=== PATIENT | female | born 1960 | race Caucasian/White ===

== ENCOUNTER 2017-12-13 12:23 | Emergency (ER) | payer MEDICARE, MEDICAID, SELFPAY ==
[2017-12-13 12:34] VITALS: BP 123/80; PULSE 83; RESP 14; TEMP 36.6; O2SAT 100; BMI 26.4
--- NOTE | 2017-12-13 12:49 | DI.RAD.S_ITS ---
PROCEDURE: XR TIBIA FIBULA RT 2V INDICATIONS: pain s/p fall TECHNIQUE: 2 views of the tibia and fibula were acquired. COMPARISON: None. FINDINGS: Bones: No fractures or dislocations. No suspicious bony lesions. Soft tissues: No suspicious soft tissue calcifications or masses. IMPRESSION: Negative for fracture Dictated by: Michael Islas M.D. on 12/13/2017 at 13:10 Approved by: Michael Islas M.D. on 12/13/2017 at 13:11
--- NOTE | 2017-12-13 12:49 | DI.RAD.S_ITS ---
PROCEDURE: XR ANKLE LT MIN 3V INDICATIONS: pain s/p fall TECHNIQUE: 3 views of the ankle were acquired. COMPARISON: None. FINDINGS: Bones: No fractures or dislocations. Ankle mortise is normally aligned. No suspicious bony lesions. Tarsometatarsal fusion with crossed orthopedic screws incidentally noted. Soft tissues: No tibiotalar joint effusion. Achilles tendon appears normal. No soft tissue swelling seen. IMPRESSION: No acute bony or soft tissue abnormality. Dictated by: Michael Islas M.D. on 12/13/2017 at 13:08 Approved by: Micahel Islas M.D. on 12/13/2017 at 13:10
--- NOTE | 2017-12-13 12:51 | ED.LOWEXIN ---
HPI - Extremity Injury (Lower) <Chelsie Baron, HE[employer]-BC - Last Filed: 12/13/17 14:38> General Chief Complaint: Extremity Injury, Lower Stated Complaint: legs went out and fell,left leg hurts Time Seen by Provider: 12/13/17 12:36 Source: patient Mode of arrival: wheelchair Limitations: no limitations History of Present Illness HPI Narrative: Patient presents 2 days after a ground level fall where her ?left leg gave out.? She complains of persistent left lower leg pain mostly in her lateral saldivar that radiates down was some numbness in her tingling in her toes. She denies hitting her head loss of consciousness nausea vomiting neck pain back pain or headache. She reports that she had a bump surrounded by erythema and blue that occurred immediately after the incident. She states that went away yesterday. She has had left ankle surgery in the past, but is not sure exactly what was completed. Chart review illustrate that she was seen at the walk-in clinic earlier today, but declined to have x-rays done and declined offer a duplex to check for DVT. Patient has allergies to many pain medications. Related Data Home Medications Medication Instructions Recorded Confirmed bupropion HCl 1 tab PO DAILY 12/13/17 12/13/17 diazepam 10 mg PO TID 12/13/17 12/13/17 doxepin 100 mg PO QPM 12/13/17 12/13/17 ibuprofen 1 tab PO TID 12/13/17 12/13/17 levothyroxine 1 tab PO DAILY 12/13/17 12/13/17 prazosin 1 cap PO BEDTIME 12/13/17 12/13/17 prazosin 2 cap PO DAILY 12/13/17 12/13/17 venlafaxine 2 cap PO QPM 12/13/17 12/13/17 Allergies Allergy/AdvReac Type Severity Reaction Status Date / Time aspirin Allergy Unknown Unverified 08/17/17 12:33 cimetidine Allergy Unknown Unverified 08/17/17 12:33 gabapentin Allergy Unknown Unverified 08/17/17 12:33 ketorolac Allergy Unknown Unverified 08/17/17 12:33 naproxen Allergy Unknown Unverified 08/17/17 12:33 pregabalin Allergy Unknown Unverified 08/17/17 12:33 Sulfa (Sulfonamide Allergy Unknown Unverified 08/17/17 12:33 Antibiotics) tolmetin Allergy Unknown Unverified 08/17/17 12:33 Review of Systems <Chelsie USMAN Baron- - Last Filed: 12/13/17 14:38> Review of Systems GENERAL: Denies chills, fatigue, malaise, fever, sweats. HEENT: Denies sinus pain, ear pain, sore throat, difficulty swallowing, dizziness. RESPIRATORY: Denies dyspnea, cough, wheezing, hemoptysis, sputum. CARDIOVASCULAR: Denies chest pain, palpitations, orthopnea, edema, GASTROINTESTINAL: Denies nausea, vomiting, abdominal pain, diarrhea, constipation, melena. : Denies dysuria, frequency, incontinence, hematuria, urinary retention. MUSCULOSKELETAL: See HPI SKIN: See HPI NEUROLOGIC: Denies weakness, headache, numbness, change in speech, confusion, seizures, incoordination. PSYCHIATRIC: No concerning psychosocial issues. 12 point review of systems is negative except for those stated above Exam <USMAN Bang- - Last Filed: 12/13/17 14:38> Narrative Exam Narrative: GENERAL: This is a well-nourished, well-developed patient, in mild distress. HEAD: Atraumatic. Normocephalic. No temporal or scalp tenderness. EYES: Pupils equal round and reactive. Extraocular motions intact. No scleral icterus. No injection or drainage. ENT: Nose without bleeding, purulent drainage or septal hematoma. Throat without erythema, tonsillar hypertrophy or exudate. Uvula midline. Airway patent. NECK: Trachea midline. No JVD or lymphadenopathy. Supple, nontender, no meningeal signs. CARDIOVASCULAR: Regular rate and rhythm without murmurs, gallops, or rubs. RESPIRATORY: Clear to auscultation. Breath sounds equal bilaterally. No wheezes, rales, or rhonchi. GASTROINTESTINAL: Abdomen soft, non-tender, nondistended. No hepato-splenomegaly, or palpable masses. No guarding. EXTREMITIES: Generalized pain to palpation mid shaft left tib-fib area. No pain to palpation left knee. No pain to palpation of tibial plateau. Pain to palpation left lateral malleolus. Patient appears to have full range of motion for left ankle and toes. No pain to palpation left foot. Pedal pulses intact bilaterally. Temperature of feet feel symmetrical. At times patient states she ?is not sure? if her at mid shaft tib-fib area hurts or not. Pain to palpation left gastroc. BACK: Nontender without deformity or crepitance. No flank tenderness. NEURO: AOx3. SKIN: Small abrasions noted on left knee with no erythema or drainage noted. No rashes no erythema no petechiae no ecchymosis noted left lower leg. No rashes no petechiae no ecchymosis no erythema noted left ankle. Initial Vital Signs Initial Vital Signs: Vital Signs Temperature 97.8 F 12/13/17 12:34 Pulse Rate 83 12/13/17 12:34 Respiratory Rate 14 12/13/17 12:34 Blood Pressure 123/80 H 12/13/17 12:34 Pulse Oximetry 100 12/13/17 12:34 <Alyse Beasley DO - Last Filed: 12/17/17 00:38> Initial Vital Signs Initial Vital Signs: Vital Signs Temperature 97.8 F 12/13/17 12:34 Pulse Rate 83 12/13/17 12:34 Respiratory Rate 14 12/13/17 12:34 Blood Pressure 123/80 H 12/13/17 12:34 Pulse Oximetry 100 12/13/17 12:34 Course <NA Bang - Last Filed: 12/13/17 14:38> Orders Ordered: ED Orders 12/13/17 12:49 XR ankle LT min 3V Stat XR tibia fibula LT 2V Stat 12/13/17 13:18 US periph venous low extrem lt Stat Reevaluation(s) Reevaluation #1: Given warm blankets. Discussed waiting for x-ray results. Patient denies these at this time. Time: 13:05 Reevaluation #2: Discussed negative x-ray findings. We will order duplex given swelling, reported redness and risk factor of smoking. Patient denies needs at this time. Is sitting on her bed watching videos on her cell phone. Time: 13:25 Reevaluation #3: Discussed negative duplex for DVT. Patient remains on stretcher watching TV on phone. Time: 15:10 Vital Signs - 8 hr 12/13/17 12:34 12/13/17 13:02 12/13/17 14:20 Temperature 97.8 F Pulse Rate 83 80 Pulse Rate [Bilateral Dorsalis Pedis] 68 Respiratory Rate 14 18 Blood Pressure 123/80 H Blood Pressure [Left Arm] 120/76 Pulse Oximetry 100 100 <Alyse Beasley DO - Last Filed: 12/17/17 00:38> Orders Ordered: ED Orders 12/13/17 12:49 XR ankle LT min 3V Stat XR tibia fibula LT 2V Stat 12/13/17 13:18 US periph venous low extrem lt Stat Vital Signs - 8 hr 12/13/17 12:34 12/13/17 13:02 12/13/17 14:20 Temperature 97.8 F Pulse Rate 83 80 Pulse Rate [Bilateral Dorsalis Pedis] 68 Respiratory Rate 14 18 Blood Pressure 123/80 H Blood Pressure [Left Arm] 120/76 Pulse Oximetry 100 100 MDM - Extremity Injury (Lower) <NA Bang - Last Filed: 12/13/17 14:38> Imaging Data left ankle xray: Radiologist's impression: [address] [address] XRay Report Signed Patient: Jolanta Cantu MR#: [id number] : 1960 Acct:[id number] Age/Sex: 57 / F Date of Service: 12/13/17 Loc: ED Accession Number: [id number] Procedure: XR ankle LT min 3V Ordering Provider: Chelsie Baron PROCEDURE: XR ANKLE LT MIN 3V INDICATIONS: pain s/p fall TECHNIQUE: 3 views of the ankle were acquired. COMPARISON: None. FINDINGS: Bones: No fractures or dislocations. Ankle mortise is normally aligned. No suspicious bony lesions. Tarsometatarsal fusion with crossed orthopedic screws incidentally noted. Soft tissues: No tibiotalar joint effusion. Achilles tendon appears normal. No soft tissue swelling seen. IMPRESSION: No acute bony or soft tissue abnormality. Dictated by: Michael Islas M.D. on 12/13/2017 at 13:08 Approved by: Michael Islas M.D. on 12/13/2017 at 13:10 left tib/fib xray: Radiologist's impression: [address] [address] XRay Report Signed Patient: Joalnta Cantu MR#: [id number] : 1960 Acct:[id number] Age/Sex: 57 / F Date of Service: 12/13/17 Loc: ED Accession Number: [id number] Procedure: XR tibia fibula LT 2V Ordering Provider: Chelsie Baron-ANTHONY PROCEDURE: XR TIBIA FIBULA RT 2V INDICATIONS: pain s/p fall TECHNIQUE: 2 views of the tibia and fibula were acquired. COMPARISON: None. FINDINGS: Bones: No fractures or dislocations. No suspicious bony lesions. Soft tissues: No suspicious soft tissue calcifications or masses. IMPRESSION: Negative for fracture Dictated by: Michael Isals M.D. on 12/13/2017 at 13:10 Approved by: Michael Islas M.D. on 12/13/2017 at 13:11 Venous US: Radiologist's impression: [place] [address] Ultrasound Report Signed Patient: Jolanta Cantu MR#: [id number] : 1960 Acct:[id number] Age/Sex: 57 / F Date of Service: 12/13/17 Loc: ED Accession Number: [id number] Procedure: US periph venous low extrem lt Ordering Provider: Chelsie Baron-ANTHONY PROCEDURE: US PERIPH VENOUS LOW EXTREM LT INDICATIONS: LEFT LEG PAIN TECHNIQUE: Real-time imaging, as well as color and pulse Doppler interrogation, were performed of the lower extremity deep veins from the inguinal ligament to the popliteal fossa. COMPARISON: None. FINDINGS: The deep veins are normally compressible, and free of intraluminal thrombus. Color and pulse Doppler demonstrate normal phasic intraluminal flow. There is normal augmentation response to distal compression maneuver. IMPRESSION: 1. Negative for DVT Dictated by: Michael Islas M.D. on 12/13/2017 at 13:51 Approved by: Michael Islas M.D. on 12/13/2017 at 13:[address] [facility] Narrative Medical decision making narrative: Patient presents with lower leg pain after a fall 2 days ago. She has no obvious swelling, ecchymosis or erythema on exam. She has good circulation and has a negative x-ray for tib-fib and negative ankle x-rays. Given her persistent lower leg pain, risk factor of smoking, complaint of erythema and swelling, I obtained a duplex for DVT. She had a negative ultrasound for DVT. Her vital signs have been stable in the emergency department. I checked on her several times throughout her stay. Given her level of pain, we gave her crutches. I encouraged her follow up with primary care if worsening or no improvement. She had no questions or concerns upon discharge was reassured by no found fractures or blood clots. Discharge Plan Departure Patient Disposition: Home, Self-Care Clinical Impression: Acute pain of left lower extremity Discharge Date/Time: 12/13/17 14:45 Interventions: ED Discharge Assessment Last Done: 12/13/17 14:45 Instructions: How To Perform RICE (Rest, Ice, Compress, Elevate), DI for Leg Pain Activity Restrictions/Additional Instructions: I suggest [id number] medications for pain. Your x-rays and ultrasound came back negative for any clot or fracture. Follow up with primary care if worsening or no improvement. Continue to use rest ice compression elevation. Prescriptions: No Action doxepin 50 mg capsule 100 mg PO QPM RF: 0 ibuprofen 800 mg tablet 1 tab PO TID RF: 0 prazosin 1 mg capsule 2 cap PO DAILY RF: 0 venlafaxine 150 mg capsule,extended release 24hr 2 cap PO QPM RF: 0 prazosin 5 mg capsule 1 cap PO BEDTIME RF: 0 levothyroxine 88 mcg tablet 1 tab PO DAILY RF: 0 diazepam 10 mg tablet 10 mg PO TID RF: 0 bupropion HCl 300 mg tablet extended release 24 hr 1 tab PO DAILY RF: 0 <Alyse Beasley DO - Last Filed: 12/17/17 00:38> Cosnahid ED Attending Keith Attestation: I was immediately available in the department for consultation. Documentation has been reviewed. I agree with assessment and plan.
--- NOTE | 2017-12-13 12:57 | ED_ITS ---
HPI - Extremity Injury (Lower) <Chelsie Baron, ATTENDANT [employer]-BC - Last Filed: 12/13/17 14:38> General Chief Complaint: Extremity Injury, Lower Stated Complaint: legs went out and fell,left leg hurts Time Seen by Provider: 12/13/17 12:36 Source: patient Mode of arrival: wheelchair Limitations: no limitations History of Present Illness HPI Narrative: Patient presents 2 days after a ground level fall where her ? left leg gave out.? She complains of persistent left lower leg pain mostly in her lateral sal[place]ar that radiates down was some numbness in her tingling in her toes. She denies hitting her head loss of consciousness nausea vomiting neck pain back pain or headache. She reports that she had a bump surrounded by erythema and blue that occurred immediately after the incident. She states that went away yesterday. She has had left ankle surgery in the past, but is not sure exactly what was completed. Chart review illustrate that she was seen at the walk-in clinic earlier today, but declined to have x-rays done and declined offer a duplex to check for DVT. Patient has allergies to many pain medications. Related Data Home Medications Medication Instructions Recorded Confirmed bupropion HCl 1 tab PO DAILY 12/13/17 12/13/17 diazepam 10 mg PO TID 12/13/17 12/13/17 doxepin 100 mg PO QPM 12/13/17 12/13/17 ibuprofen 1 tab PO TID 12/13/17 12/13/17 levothyroxine 1 tab PO DAILY 12/13/17 12/13/17 prazosin 1 cap PO BEDTIME 12/13/17 12/13/17 prazosin 2 cap PO DAILY 12/13/17 12/13/17 venlafaxine 2 cap PO QPM 12/13/17 12/13/17 Allergies Allergy/AdvReac Type Severity Reaction Status Date / Time aspirin Allergy Unknown Unverified 08/17/17 12:33 cimetidine Allergy Unknown Unverified 08/17/17 12:33 gabapentin Allergy Unknown Unverified 08/17/17 12:33 ketorolac Allergy Unknown Unverified 08/17/17 12:33 naproxen Allergy Unknown Unverified 08/17/17 12:33 pregabalin Allergy Unknown Unverified 08/17/17 12:33 Sulfa (Sulfonamide Allergy Unknown Unverified 08/17/17 12:33 Antibiotics) tolmetin Allergy Unknown Unverified 08/17/17 12:33 Review of Systems <Chelsie USMAN Baron- - Last Filed: 12/13/17 14:38> Review of Systems GENERAL: Denies chills, fatigue, malaise, fever, sweats. HEENT: Denies sinus pain, ear pain, sore throat, difficulty swallowing, dizziness. RESPIRATORY: Denies dyspnea, cough, wheezing, hemoptysis, sputum. CARDIOVASCULAR: Denies chest pain, palpitations, orthopnea, edema, GASTROINTESTINAL: Denies nausea, vomiting, abdominal pain, diarrhea, constipation, melena. : Denies dysuria, frequency, incontinence, hematuria, urinary retention. MUSCULOSKELETAL: See HPI SKIN: See HPI NEUROLOGIC: Denies weakness, headache, numbness, change in speech, confusion, seizures, incoordination. PSYCHIATRIC: No concerning psychosocial issues. 12 point review of systems is negative except for those stated above Exam <USMAN Bang- - Last Filed: 12/13/17 14:38> Narrative Exam Narrative: GENERAL: This is a well-nourished, well-developed patient, in mild distress. HEAD: Atraumatic. Normocephalic. No temporal or scalp tenderness. EYES: Pupils equal round and reactive. Extraocular motions intact. No scleral icterus. No injection or drainage. ENT: Nose without bleeding, purulent drainage or septal hematoma. Throat without erythema, tonsillar hypertrophy or exudate. Uvula midline. Airway patent. NECK: Trachea midline. No JVD or lymphadenopathy. Supple, nontender, no meningeal signs. CARDIOVASCULAR: Regular rate and rhythm without murmurs, gallops, or rubs. RESPIRATORY: Clear to auscultation. Breath sounds equal bilaterally. No wheezes , rales, or rhonchi. GASTROINTESTINAL: Abdomen soft, non-tender, nondistended. No hepato-splenomegaly , or palpable masses. No guarding. EXTREMITIES: Generalized pain to palpation mid shaft left tib-fib area. No pain to palpation left knee. No pain to palpation of tibial plateau. Pain to palpation left lateral malleolus. Patient appears to have full range of motion for left ankle and toes. No pain to palpation left foot. Pedal pulses intact bilaterally. Temperature of feet feel symmetrical. At times patient states she ?is not sure? if her at mid shaft tib-fib area hurts or not. Pain to palpation left gastroc. BACK: Nontender without deformity or crepitance. No flank tenderness. NEURO: AOx3. SKIN: Small abrasions noted on left knee with no erythema or drainage noted. No rashes no erythema no petechiae no ecchymosis noted left lower leg. No rashes no petechiae no ecchymosis no erythema noted left ankle. Initial Vital Signs Initial Vital Signs: Vital Signs Temperature 97.8 F 12/13/17 12:34 Pulse Rate 83 12/13/17 12:34 Respiratory Rate 14 12/13/17 12:34 Blood Pressure 123/80 H 12/13/17 12:34 Pulse Oximetry 100 12/13/17 12:34 <Alyse Beasley DO - Last Filed: 12/17/17 00:38> Initial Vital Signs Initial Vital Signs: Vital Signs Temperature 97.8 F 12/13/17 12:34 Pulse Rate 83 12/13/17 12:34 Respiratory Rate 14 12/13/17 12:34 Blood Pressure 123/80 H 12/13/17 12:34 Pulse Oximetry 100 12/13/17 12:34 Course <NA Bang - Last Filed: 12/13/17 14:38> Orders Ordered: ED Orders 12/13/17 12:49 XR ankle LT min 3V Stat XR tibia fibula LT 2V Stat 12/13/17 13:18 US periph venous low extrem lt Stat Reevaluation(s) Reevaluation #1: Given warm blankets. Discussed waiting for x-ray results. Patient denies these at this time. Time: 13:05 Reevaluation #2: Discussed negative x-ray findings. We will order duplex given swelling, reported redness and risk factor of smoking. Patient denies needs at this time. Is sitting on her bed watching videos on her cell phone. Time: 13:25 Reevaluation #3: Discussed negative duplex for DVT. Patient remains on stretcher watching TV on phone. Time: 15:10 Vital Signs - 8 hr 12/13/17 12:34 12/13/17 13:02 12/13/17 14:20 Temperature 97.8 F Pulse Rate 83 80 Pulse Rate [Bilateral Dorsalis Pedis] 68 Respiratory Rate 14 18 Blood Pressure 123/80 H Blood Pressure [Left Arm] 120/76 Pulse Oximetry 100 100 <Alyse Beasley DO - Last Filed: 12/17/17 00:38> Orders Ordered: ED Orders 12/13/17 12:49 XR ankle LT min 3V Stat XR tibia fibula LT 2V Stat 12/13/17 13:18 US periph venous low extrem lt Stat Vital Signs - 8 hr 12/13/17 12:34 12/13/17 13:02 12/13/17 14:20 Temperature 97.8 F Pulse Rate 83 80 Pulse Rate [Bilateral Dorsalis Pedis] 68 Respiratory Rate 14 18 Blood Pressure 123/80 H Blood Pressure [Left Arm] 120/76 Pulse Oximetry 100 100 MDM - Extremity Injury (Lower) <NA Bang - Last Filed: 12/13/17 14:38> Imaging Data left ankle xray: Radiologist's impression: [address] [address] XRay Report Signed Patient: Jolanta Cantu MR#: [id number] : 1960 Acct:[id number] Age/Sex: 57 / F Date of Service: 12/13/17 Loc: ED Accession Number: [id number] Procedure: XR ankle LT min 3V Ordering Provider: Chelsie Baron PROCEDURE: XR ANKLE LT MIN 3V INDICATIONS: pain s/p fall TECHNIQUE: 3 views of the ankle were acquired. COMPARISON: None. FINDINGS: Bones: No fractures or dislocations. Ankle mortise is normally aligned. No suspicious bony lesions. Tarsometatarsal fusion with crossed orthopedic screws incidentally noted. Soft tissues: No tibiotalar joint effusion. Achilles tendon appears normal. No soft tissue swelling seen. IMPRESSION: No acute bony or soft tissue abnormality. Dictated by: Michael Islas M.D. on 12/13/2017 at 13:08 Approved by: Michael Islas M.D. on 12/13/2017 at 13:10 left tib/fib xray: Radiologist's impression: [address] [address] XRay Report Signed Patient: Jolanta Cantu MR#: [id number] : 1960 Acct:[id number] Age/Sex: 57 / F Date of Service: 12/13/17 Loc: ED Accession Number: [id number] Procedure: XR tibia fibula LT 2V Ordering Provider: Chelsie Baron-ANTHONY PROCEDURE: XR TIBIA FIBULA RT 2V INDICATIONS: pain s/p fall TECHNIQUE: 2 views of the tibia and fibula were acquired. COMPARISON: None. FINDINGS: Bones: No fractures or dislocations. No suspicious bony lesions. Soft tissues: No suspicious soft tissue calcifications or masses. IMPRESSION: Negative for fracture Dictated by: Michael Islas M.D. on 12/13/2017 at 13:10 Approved by: Michael Islas M.D. on 12/13/2017 at 13:11 Venous US: Radiologist's impression: [place] [address] Ultrasound Report Signed Patient: Jolanta Cantu MR#: [id number] : 1960 Acct:[id number] Age/Sex: 57 / F Date of Service: 12/13/17 Loc: ED Accession Number: [id number] Procedure: US periph venous low extrem lt Ordering Provider: Chelsie Baron-ANTHONY PROCEDURE: US PERIPH VENOUS LOW EXTREM LT INDICATIONS: LEFT LEG PAIN TECHNIQUE: Real-time imaging, as well as color and pulse Doppler interrogation, were performed of the lower extremity deep veins from the inguinal ligament to the popliteal fossa. COMPARISON: None. FINDINGS: The deep veins are normally compressible, and free of intraluminal thrombus. Color and pulse Doppler demonstrate normal phasic intraluminal flow. There is normal augmentation response to distal compression maneuver. IMPRESSION: 1. Negative for DVT Dictated by: Michael Islas M.D. on 12/13/2017 at 13:51 Approved by: Michael Islas M.D. on 12/13/2017 at 13:[address] [facility] Narrative Medical decision making narrative: Patient presents with lower leg pain after a fall 2 days ago. She has no obvious swelling, ecchymosis or erythema on exam. She has good circulation and has a negative x-ray for tib-fib and negative ankle x-rays. Given her persistent lower leg pain, risk factor of smoking, complaint of erythema and swelling, I obtained a duplex for DVT. She had a negative ultrasound for DVT. Her vital signs have been stable in the emergency department. I checked on her several times throughout her stay. Given her level of pain, we gave her crutches. I encouraged her follow up with primary care if worsening or no improvement. She had no questions or concerns upon discharge was reassured by no found fractures or blood clots. Discharge Plan Departure Patient Disposition: Home, Self-Care Clinical Impression: Acute pain of left lower extremity Discharge Date/Time: 12/13/17 14:45 Interventions: ED Discharge Assessment Last Done: 12/13/17 14:45 Instructions: How To Perform RICE (Rest, Ice, Compress, Elevate), DI for Leg Pain Activity Restrictions/Additional Instructions: I suggest [id number] medications for pain. Your x-rays and ultrasound came back negative for any clot or fracture. Follow up with primary care if worsening or no improvement. Continue to use rest ice compression elevation. Prescriptions: No Action doxepin 50 mg capsule 100 mg PO QPM RF: 0 ibuprofen 800 mg tablet 1 tab PO TID RF: 0 prazosin 1 mg capsule 2 cap PO DAILY RF: 0 venlafaxine 150 mg capsule,extended release 24hr 2 cap PO QPM RF: 0 prazosin 5 mg capsule 1 cap PO BEDTIME RF: 0 levothyroxine 88 mcg tablet 1 tab PO DAILY RF: 0 diazepam 10 mg tablet 10 mg PO TID RF: 0 bupropion HCl 300 mg tablet extended release 24 hr 1 tab PO DAILY RF: 0 <Alyse Beasley DO - Last Filed: 12/17/17 00:38> Cosnahid ED Attending Keith Attestation: I was immediately available in the department for consultation. Documentation has been reviewed. I agree with assessment and plan.
[2017-12-13 13:02] VITALS: PULSE 68
--- NOTE | 2017-12-13 13:05 | PC.NURSE ---
There is a small lump on the lateral aspect of the right calf. Pt states this is new. The skin is warm, dry and intact. No erythema or swelling noted. Denies chest pain or shortness of breath.
--- NOTE | 2017-12-13 13:18 | DI.US.S_ITS ---
PROCEDURE: US PERIPH VENOUS LOW EXTREM LT INDICATIONS: LEFT LEG PAIN TECHNIQUE: Real-time imaging, as well as color and pulse Doppler interrogation, were performed of the lower extremity deep veins from the inguinal ligament to the popliteal fossa. COMPARISON: None. FINDINGS: The deep veins are normally compressible, and free of intraluminal thrombus. Color and pulse Doppler demonstrate normal phasic intraluminal flow. There is normal augmentation response to distal compression maneuver. IMPRESSION: 1. Negative for DVT Dictated by: Michael Islas M.D. on 12/13/2017 at 13:51 Approved by: Michael Islas M.D. on 12/13/2017 at 13:52
[2017-12-13 14:20] VITALS: BP 120/76; PULSE 80; RESP 18; O2SAT 100
== END 2017-12-13 14:45 | disposition home or self-care (01) ==
PROVIDERS: Emergency Provider Nurse Practitioner Family
DX: M79.605 Pain in left leg (principal); W18.30XA Fall on same level, unspecified, initial encounter
CPT/HCPCS: 73590; 73610; 93971; 99282; 99283